=== PATIENT | male | born 1950 | race Two or more races ===

== ENCOUNTER → 2018-05-12 | Outpatient (CLI) | payer MEDICARE, OTHER ==
[~2018-05-12] MED LIST: DIOVAN160 MG PO; FLOMAX0.4 MG PO; KLONOPIN1 MG PO; METFORMIN HCL500 MG PO; SIMVASTATIN PO
--- NOTE | 2018-05-12 13:29 | Diagnostic Imaging Report ---
PROCEDURE:X-RAY ABDOMEN - KUB COMPARISON:06/30/2011. INDICATIONS:FOLLOW UP FOR RENAL STONE FINDINGS: No suspicious calcifications project over the renal shadows, expected ureteral courses, or urinary bladder. 2 rounded right pelvic calcifications are noted, likely representing phleboliths. Bowel gas pattern is nonobstructive. Regional skeletal structures are intact. CONCLUSION: No plain film evidence of urolithiasis. Previously described 3 mm left renal calculus is no longer visualized. Dictated by: Vipul Sky M.D. on 05/12/2018 at 13:34 Electronically approved by: Vipul Sky M.D. on 05/12/2018 at 13:34
== END ==
LOC: RAD 13:03
PROVIDERS: ATTEND Urology
DX: N20.0 Calculus of kidney (principal)
CPT/HCPCS: 74018

== ENCOUNTER 2018-06-14 08:04 | Inpatient (IN) | payer MEDICARE, OTHER ==
[2018-06-08 15:02] LABS: BASOPHILS # (AUTO) 0.1 (0.0-0.1); BASOPHILS % 0.8 % (0.0-1.0); EOSINOPHILS # (AUTO) 0.1 (0.0-0.4); EOSINOPHILS % 1.5 % (0.0-6.0); HEMATOCRIT 45.4 % (38.2-49.6); HEMOGLOBIN 16.1 g/dL (14.0-18.0); LYMPHOCYTES # (AUTO) 3.4 (1.0-3.2); LYMPHOCYTES % 39.3 % (18.0-39.1); MEAN CORPUSCULAR HEMOGLOBIN 30.7 pg (28-32); MEAN CORPUSCULAR HGB CONC 35.5 g/dL (31-35); MEAN CORPUSCULAR VOLUME 86.5 fL (81-99); MONOCYTES # (AUTO) 0.9 (0.2-0.8); MONOCYTES % 10.9 % (4.4-11.3); NEUTROPHILS % 46.7 % (38.7-80.0); PLATELET COUNT 150 x10e3/uL (140-360); RED BLOOD COUNT 5.25 x10e6/uL (4.3-5.7); RED CELL DISTRIBUTION WIDTH 12.9 % (11.7-14.4)
[2018-06-08 15:19] LABS: ANION GAP 14.9 mmol/L (8-16); BLOOD UREA NITROGEN 14 mg/dL (7-26); BUN/CREATININE RATIO 12 (6-25); CALCIUM 9.2 mg/dL (8.4-10.2); CARBON DIOXIDE 23 mmol/L (22-29); CHLORIDE 106 mmol/L (98-107); CREATININE, SERUM 1.16 mg/dL (0.72-1.25); EST GLOMERULAR FILTRATION RATE > 60 ML/MIN (60-); GLUCOSE 116 mg/dL (74-118); POTASSIUM 3.9 mmol/L (3.5-5.1); SODIUM 140 mmol/L (136-145)
--- NOTE | 2018-06-08 15:19 | Diagnostic Imaging Report ---
EXAMINATION: CHEST 2 VIEWS INDICATION: \S\PRE ADMIT \S\[id number] \S\1432 COMPARISON: None FINDINGS: PA and lateral views TUBES and LINES: None. LUNGS: Lungs are well inflated. Lungs are clear. There is no evidence of pneumonia or pulmonary edema. PLEURA: No pleural effusion or pneumothorax. HEART AND MEDIASTINUM: The cardiomediastinal silhouette is unremarkable. BONES AND SOFT TISSUES: No acute osseous lesion. Soft tissues are unremarkable. UPPER ABDOMEN: No free air under the diaphragm. IMPRESSION: No acute thoracic abnormality. Signed by: Dr. Suzanne Denton M.D. on 06/08/2018 3:16 PM
[~2018-06-14] VITALS: Ht 167.6 cm; Wt 73.5 kg
[~2018-06-14 08:04] MED LIST changes: +DOXEPIN; +IOPAMIDOL 300MG/ML 50ML INFUS..BTL IV ONE
[2018-06-14] MEDS ORDERED: CEFTRIAXONE SOD 1 GM VIAL ONE (08:27)
[2018-06-14] MEDS ORDERED: GENTAMICIN 80MG/NS 100 ML 200 ML IV ONE (08:41)
[2018-06-14] MEDS ORDERED: FENTANYL CITRATE/PF 100MCG/2 ML INJ ONE ×2 (14:38→18:07)
[2018-06-14] MEDS ORDERED: NALOXONE HCL INJ 0.4 MG/ML AMP IV PRN (16:00)
[2018-06-14] MEDS ORDERED: LEVOFLOXACIN 500MG/D5W 100ML 100 ML IV SCH (16:00)
[2018-06-14] MEDS ORDERED: ONDANSETRON HCL INJ 2 MG/ML VIAL IV PRN (16:00)
[2018-06-14] MEDS ORDERED: DIPHENHYDRAMINE HCL INJ 50 MG/ML VIAL IM PRN (16:00)
[2018-06-14] MEDS ORDERED: MORPHINE SULFATE 1 MG/ML 30ML PCA IV PRN (16:00)
[2018-06-14] MEDS ORDERED: MORPHINE SULFATE 2 MG/ML SYR ONE (17:10)
[2018-06-14] MEDS ORDERED: ONDANSETRON HCL INJ 2 MG/ML VIAL ONE (17:29)
[2018-06-14] MEDS ORDERED: DEXAMETHASONE SOD PHOS INJ 4 MG/ML VIAL ONE (17:29)
[2018-06-14] MEDS ORDERED: SEVOFLURANE INHAL SOLN 250 ML PEN BTL ONE (17:29)
[2018-06-14] MEDS ORDERED: LIDOCAINE HCL 2% LOCAL INJ 5 ML SDV VIAL INJ ONE (17:29)
[2018-06-14] MEDS ORDERED: KETOROLAC TROMETHAMINE 30 MG/ML VIAL ONE (17:29)
[2018-06-14] MEDS ORDERED: PROPOFOL IV EMULSION 10 MG/ML 20 ML VIAL ONE (17:29)
[2018-06-14 17:50] VITALS: BP 126/76
[2018-06-14] MEDS ORDERED: MIDAZOLAM HCL 2 MG/2 ML VIAL ONE (18:07)
[2018-06-14 18:38] VITALS: BP 126/76
[2018-06-14 18:46] VITALS: BP 126/76
[2018-06-14] MEDS ORDERED: FINASTERIDE5 MG PO (18:53)
[2018-06-14] MEDS ORDERED: DETROL LA4 MG PO (18:53)
[2018-06-14 20:00] VITALS: BP 110/69
[2018-06-14] MEDS: PHENAZOPYRIDINE HCL 100 MG TAB PO SCH (21:14)
[2018-06-14] MEDS: DOCUSATE SODIUM 100 MG CAP PO SCH (21:14)
[2018-06-14] MEDS: LEVOFLOXACIN 500MG/D5W 100ML 100 ML IV SCH (21:14)
[2018-06-14 21:15] VITALS: BP 110/69
[2018-06-14] MEDS: SOD CHL 0.45%/POT CHL 20MEQ 1,000 ML IV SCH (22:13)
[2018-06-15] VITALS (8 sets, daily range): BP systolic 85–155; BP diastolic 50–69
[2018-06-15] MEDS: SOD CHL 0.45%/POT CHL 20MEQ 1,000 ML IV SCH ×2 (00:20→19:00)
[2018-06-15 05:46] LABS: BASOPHILS % 0.2 % (0.0-1.0); HEMATOCRIT 33.9 % (38.2-49.6); HEMOGLOBIN 11.7 g/dL (14.0-18.0); LYMPHOCYTES # (AUTO) 2.3 (1.0-3.2); LYMPHOCYTES % 17.9 % (18.0-39.1); MEAN CORPUSCULAR HEMOGLOBIN 30.6 pg (28-32); MEAN CORPUSCULAR HGB CONC 34.5 g/dL (31-35); MEAN CORPUSCULAR VOLUME 88.7 fL (81-99); MONOCYTES # (AUTO) 1.3 (0.2-0.8); MONOCYTES % 10.1 % (4.4-11.3); NEUTROPHILS # (AUTO) 9.1 (2.1-6.9); NEUTROPHILS % 70.6 % (38.7-80.0); PLATELET COUNT 146 x10e3/uL (140-360); RED BLOOD COUNT 3.82 x10e6/uL (4.3-5.7); RED CELL DISTRIBUTION WIDTH 13.1 % (11.7-14.4)
[2018-06-15 06:05] LABS: ANION GAP 13.2 mmol/L (8-16); CALCIUM 7.5 mg/dL (8.4-10.2); CREATININE, SERUM 1.49 mg/dL (0.72-1.25); POTASSIUM 5.2 mmol/L (3.5-5.1)
[2018-06-15] MEDS ORDERED: DEXTROSE 50% SYRINGE 50 ML IV PRN (09:00)
[2018-06-15] MEDS: PHENAZOPYRIDINE HCL 100 MG TAB PO SCH ×3 (09:18→18:44)
[2018-06-15] MEDS: DOCUSATE SODIUM 100 MG CAP PO SCH ×2 (09:18→17:58)
--- NOTE | 2018-06-15 09:39 | History and Physical ---
POKER MACHINE ATTENDANT: Dr. Christopher Pope. CHIEF COMPLAINT: The patient is status post TURP procedure. HISTORY: A 67-year-old male with enlarged prostate and multiple kidney stone history. The patient is now admitted for postoperative care. The patient requires continuous irrigation due to post TURP. The patient has likely hematuria which is improved now. At baseline, the patient enlarged prostate and hypertension along with diabetes controlled with medication as well as dyslipidemia. The patient is otherwise stable at this time. PAST MEDICAL HISTORY: Diabetes type 2, enlarged prostate, dyslipidemia, hypertension. PAST SURGICAL HISTORY 1. Status post TURP procedure. 2. Left kidney stone removal. 3. History of lithotripsy. 4. Circumcision at age 12. 5. Left inguinal hernia repair. 6. Colonoscopy. SOCIAL HISTORY: The patient does not smoke or use alcohol. No recreational drugs. ALLERGIES: NO KNOWN ALLERGIES. HOME MEDICATIONS: He is on Klonopin, finasteride, metformin, Flomax, Detrol [place], Valsartan and simvastatin. PHYSICAL EXAMINATION VITAL SIGNS: Temperature is 98. Blood pressure 91/55. Pulse rate is 85. Respirations 18. GENERAL: The patient is not in acute distress. He is awake. HEENT: Normocephalic, atraumatic. Sclerae anicteric. NECK: Supple grossly. PULMONARY: Diminished breath sounds without any wheezes or rales. CARDIOVASCULAR: S1 and S2. Regular rate and rhythm. ABDOMEN: Soft, status post TURP procedure. EXTREMITIES: No cyanosis or edema. NEUROLOGIC: No focal deficit. LABORATORY: Sodium is 137, potassium 5.2, chloride 106, bicarb 23, BUN 25, creatinine 1.5, glucose 144. 147. WBC is 12.8, hemoglobin 11.7, hematocrit 33.9 and platelet is 146,000. IMPRESSION 1. Status post transurethral resection of prostate procedure. 2. Hyperkalemia. 3. Baseline hypertension, diabetes and dyslipidemia. 4. Enlarged prostate, status post procedure. 5. Postoperative hematuria, improving. PLAN: Continue with postop care. Discontinue IV fluids and TOLL TEST WORKER. Monitor the patient's lab work. Will check the potassium in the morning. Incentive spirometry. Resume home medications. Insulin sliding scale coverage. Job#: [id number]
[2018-06-15] MEDS: INSULIN LISPRO 100 UNIT/1 ML 3ML VIAL SQ SCH ×3 (11:30→21:00)
[2018-06-15] MEDS: HYDROCODONE/APAP 10MG-325MG TAB PO PRN ×2 (13:33→21:00)
[2018-06-15] MEDS: CALCIUM CARBONATE 500 MG CHEWABLE TABS PO SCH (17:58)
[2018-06-15] MEDS: LEVOFLOXACIN 500MG/D5W 100ML 100 ML IV SCH (21:00)
[2018-06-16] VITALS (8 sets, daily range): BP systolic 124–168; BP diastolic 67–90
[2018-06-16] MEDS: HYDROCODONE/APAP 10MG-325MG TAB PO PRN ×3 (02:10→19:23)
[2018-06-16 06:05] LABS: BASOPHILS # (AUTO) 0.1 (0.0-0.1); BASOPHILS % 0.7 % (0.0-1.0); EOSINOPHILS # (AUTO) 0.2 (0.0-0.4); HEMOGLOBIN 10.2 g/dL (14.0-18.0); LYMPHOCYTES # (AUTO) 2.6 (1.0-3.2); LYMPHOCYTES % 25.9 % (18.0-39.1); MEAN CORPUSCULAR HEMOGLOBIN 30.4 pg (28-32); MEAN CORPUSCULAR VOLUME 89.3 fL (81-99); MONOCYTES # (AUTO) 1.1 (0.2-0.8); MONOCYTES % 10.6 % (4.4-11.3); NEUTROPHILS # (AUTO) 5.9 (2.1-6.9); NEUTROPHILS % 59.8 % (38.7-80.0); PLATELET COUNT 125 x10e3/uL (140-360); RED BLOOD COUNT 3.36 x10e6/uL (4.3-5.7); RED CELL DISTRIBUTION WIDTH 13.2 % (11.7-14.4)
[2018-06-16 06:26] LABS: ANION GAP 11.6 mmol/L (8-16); CALCIUM 8.2 mg/dL (8.4-10.2); CREATININE, SERUM 1.25 mg/dL (0.72-1.25); POTASSIUM 4.6 mmol/L (3.5-5.1)
[2018-06-16] MEDS: INSULIN LISPRO 100 UNIT/1 ML 3ML VIAL SQ SCH ×4 (07:30→21:00)
[2018-06-16] MEDS: CALCIUM CARBONATE 500 MG CHEWABLE TABS PO SCH ×2 (08:31→17:04)
[2018-06-16] MEDS: DOCUSATE SODIUM 100 MG CAP PO SCH ×2 (08:31→17:04)
[2018-06-16] MEDS: PHENAZOPYRIDINE HCL 100 MG TAB PO SCH ×2 (08:31→12:56)
[2018-06-16] MEDS: LEVOFLOXACIN 500MG/D5W 100ML 100 ML IV SCH (21:43)
[2018-06-17] VITALS: BP 134/78
[2018-06-17 04:00] VITALS: BP 130/69
[2018-06-17 05:47] LABS: BASOPHILS # (AUTO) 0.1 (0.0-0.1); BASOPHILS % 0.7 % (0.0-1.0); EOSINOPHILS # (AUTO) 0.2 (0.0-0.4); HEMATOCRIT 32.3 % (38.2-49.6); LYMPHOCYTES # (AUTO) 3.4 (1.0-3.2); LYMPHOCYTES % 29.1 % (18.0-39.1); MEAN CORPUSCULAR HEMOGLOBIN 30.6 pg (28-32); MEAN CORPUSCULAR HGB CONC 34.1 g/dL (31-35); MEAN CORPUSCULAR VOLUME 89.7 fL (81-99); MONOCYTES # (AUTO) 1.2 (0.2-0.8); MONOCYTES % 10.1 % (4.4-11.3); NEUTROPHILS # (AUTO) 6.7 (2.1-6.9); NEUTROPHILS % 56.6 % (38.7-80.0); PLATELET COUNT 132 x10e3/uL (140-360); RED CELL DISTRIBUTION WIDTH 13.3 % (11.7-14.4)
[2018-06-17 06:03] LABS: ANION GAP 13.8 mmol/L (8-16); CALCIUM 8.8 mg/dL (8.4-10.2); CREATININE, SERUM 1.22 mg/dL (0.72-1.25); POTASSIUM 3.8 mmol/L (3.5-5.1)
[2018-06-17] MEDS: INSULIN LISPRO 100 UNIT/1 ML 3ML VIAL SQ SCH ×2 (07:30→11:30)
[2018-06-17] MEDS: CALCIUM CARBONATE 500 MG CHEWABLE TABS PO SCH (08:29)
[2018-06-17] MEDS: DOCUSATE SODIUM 100 MG CAP PO SCH (08:29)
[2018-06-17 08:33] VITALS: BP 157/87
[2018-06-17 10:39] VITALS: BP 157/87
[2018-06-17 12:20] VITALS: BP 140/82
[2018-06-17] MEDS ORDERED: LEVAQUIN500 MG PO (12:53)
[2018-06-17] MEDS ORDERED: DITROPAN XL5 MG PO (12:54)
[2018-06-17] MEDS ORDERED: TYLENOL WITH C1 EACH PO (12:54)
--- NOTE | 2018-06-17 23:54 | Discharge Summary ---
GLORY HOLE TENDER: Dr. Christopher Pope FINAL DIAGNOSES 1. Status post transurethral resection of prostate. 2. Resolved hematuria. SUMMARY: A 67-year-old male with a urinary tract obstruction, came in status post TURP. The patient has blood clotting due to the Liu catheter, he was getting continuous urinary bladder irrigation. The urine is much clear today. The patient is stable. He will discharge home with a Liu catheter with a leg bag. The patient is stable. LAB WORK: Otherwise unremarkable. BUN and creatinine is 13.1 and 1.22, stabilized. The hemoglobin 11, hematocrit 32.3. Patient is stable, discharged home today with Levaquin 5 mg daily for 7 days. Patient was stable. Continue with home medication. Tylenol No. 3 for pain and Ditropan for spasm. Job#: [id number] CQ
--- OUTSIDE RECORDS SUMMARY | 2018-07-13 06:07 | XMS REPORT ---
Author Author [facility] Address Unknown Phone Unavailable Care Team Providers Care Tree Chipper Name Role Phone KARLIE AGUAYO Unavailable Unavailable VISHAL ALEJANDRA Unavailable Unavailable Problems This patient has no known problems. Allergies, Adverse Reactions, Alerts This patient has no known allergies or adverse reactions. Medications This patient has no known medications. Results Test Description Test Time Test Comments Text Results Atomic Results Result Comments CHEST 2 VIEWS 2018-06-08 15:16:00 [facility] [address] [place] [address] Patient Name: BRITTANY WANG MR #: [id number] : 1950 Age/Sex: 67/M Req #: [id number] Adm Physician: Ordered by: SHAHAB DOMINGUEZ MD Report #: [id number] Location: OR Room/Bed: Procedure: [id number] DX/CHEST 2 VIEWS Exam Date: 06/08/18 Exam Time: 1432 REPORT STATUS: Signed EXAMINATION: CHEST 2 VIEWS INDICATION: COMPARISON: None FINDINGS: PA and lateral views TUBES and LINES: None. LUNGS: Lungs are well inflated. Lungs are clear. There is no evidence of pneumonia or pulmonary edema. PLEURA: No pleural effusion or pneumothorax. HEART AND MEDIASTINUM: The cardiomediastinal silhouette is unremarkable. BONES AND SOFT TISSUES: No acute osseous lesion. Soft tissues are unremarkable. UPPER ABDOMEN: No free air under the diaphragm. IMPRESSION: No acute thoracic abnormality. Signed by: Dr. George Alberto M.D. on 06/08/2018 3:16 PM Dictated By: GEORGE ALBERTO MD 15 Transcribed By: JOYCE on 06/08/181515 COPY TO: SHAHAB DOMINGUEZ MD ABDOMEN-1VIEW (KUB) 2018-05-12 13:34:00 [place] [address] Patient Name: BRITTANY WANG MR #: [id number] : 1950 Age/Sex: 67/M Req #: [id number] Adm Physician: Ordered by: KARLIE AGUAYO MD Report #: [id number] Location: [facility] Room/Bed: Procedure: [id number] DX/ABDOMEN-1VIEW (KUB) Exam Date: 05/12/18 Exam Time: 1318 REPORT STATUS: Signed PROCEDURE: X-RAY ABDOMEN - KUB COMPARISON: 06/30/2011. INDICATIONS: FOLLOW UP FOR RENAL STONE FINDINGS: No suspicious calcifications project over the renal shadows, expected ureteral courses, or urinary bladder. 2 rounded right pelvic calcifications are noted, likely representing phleboliths. Bowel gas pattern is nonobstructive. Regional skeletal structures are intact. CONCLUSION: No plain film evidence of urolithiasis. Previously described 3 mm left renal calculus is no longer visualized. Dictated by: Cecil Zhu M.D. on 05/12/2018 at 13:34 Electronically approved by: Cecil Zhu M.D. on 05/12/2018 at 13:34 Dictated By : CECIL ZHU MD 1334 Transcribed By: DAPHNEY on 05/12/18 1334 COPY TO: KARLIE AGUAYO MD CHEST 2 VIEWS [place] [address] Patient Name: BRITTANY WANG MR #: [id number] : 1950 Age/Sex: 67/M Req #: [id number] Adm Physician: Ordered by: VISHAL ALEJANDRA MD Report #: [id number] Location: OR Room/Bed: Procedure: [id number] DX/CHEST 2 VIEWS Exam Date: 09/12/17 Exam Time: 1105 REPORT STATUS: Signed PROCEDURE: CHEST 2 VIEWS TECHNIQUE: PA and lateral chest INDICATION: Preoperative evaluation for hernia repair COMPARISON: None. FINDINGS: Lungs are clear and symmetrically inflated. No pleural effusions. Normal heart size, mediastinal contour, and pulmonary vasculature. Intact skeleton. CONCLUSION: Normal chest. Dictated by: Sara Acharya M.D. on 09/12/2017 at 11: 43 Electronically approved by: Sara Acharya M.D. on 09/12/2017 at 11:43 Dictated By: SARA ACHARYA MD 1143 Transcribed By: DAPHNEY on 1143 COPY TO: VISHAL ALEJANDRA MD
--- NOTE | 2018-08-20 23:31 | Operative Report ---
DATE OF PROCEDURE: June 14, 2018 PREOPERATIVE DIAGNOSES 1. Obstructive BPH. 2. History of urolithiasis. POSTOPERATIVE DIAGNOSES 1. Obstructive BPH. 2. History of urolithiasis. 3. 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 OPERATIONS PERFORMED 1. Cystourethroscopy with calibration and dilation of urethral stricture (separate procedure performed for the diagnosis of stricture). 2. Cystourethroscopy with bilateral ureteral catheterization and retrograde ureteropyelography (separate procedure performed for history of urolithiasis). 3. Interpretation of retrograde ureteropyelography. 4. Cystourethroscopy with staged transurethral resection of the prostate utilizing the plasma button electrode. ANESTHESIA: General. COMPLICATIONS: None. CLINICAL SUMMARY: Inder Oliveira is a 67-year-old man with longstanding BPH. He has been on Flomax. He has previously been on finasteride. He has a hyperreflexic bladder and occasional urge incontinence. He has a history of stones. He is brought for the above procedures. He is aware of the risks of bleeding, infection, injury to adjacent structures, incontinence, impotence, retrograde ejaculation, need for additional procedures, and elected to proceed. OPERATIVE PROCEDURE IN DETAIL: Informed consent was verified. Inder Oliveira was properly identified, taken to the operating room, placed on the cystoscopy table in supine position. Anesthesia was uneventfully begun. The patient was then carefully and gently re-positioned in the dorsal lithotomy position with all pressure points well padded. His genitalia were prepared and draped in usual sterile fashion. The 22.5-Moroccan cystoscope sheath with visual obturator in place was atraumatically inserted in patient's urethra, but we could not pass through the fossa navicularis due to stricture. We calibrated this stricture to approximately 18-Moroccan in size and gently dilated it to 28-Moroccan in size. Following this, we were easily able to place the 22.5-Moroccan cystoscope sheath with a visual obturator into the patient's urethra. It was then guided down the otherwise unremarkable urethra past a normal sphincteric region, through the prostate bed which was significant for visually obstructing trilobar BPH. Panendoscopy of the urinary bladder revealed no suspicious mucosal lesions. No tumors and no stones. Trabeculations were noted. An 8-Moroccan catheter was used to cannulate each ureter and retrograde ureteropyelograms were performed. Interpretation of retrograde ureteropyelography: Contrast was instilled in retrograde fashion bilaterally. There were no tumors, no stones, and no diverticula. Unobstructed drainage was observed bilaterally fluoroscopically. The resectoscope sheath was then inserted. We utilized the plasma button electrode first. We eliminated the entire median lobe taking care to avoid injury to the ureteral orifices. We then worked on both lateral lobes from the bladder neck to but never past the verumontanum. This resulted in a wide open prostatic bed with excellent hemostasis. The resectoscope was withdrawn. Liu catheter was placed. It was placed on continuous irrigation. Patient was then uneventfully reversed from anesthesia and taken to the recovery room in stable condition. There were no complications to the procedure. He tolerated the procedure well. Explicit postop instructions were given. We will of course continue to follow the patient. Job#: [id number]
== END 2018-06-17 13:19 | disposition home or self-care (01) | DRG 713 ==
LOC: OR 08:04 → MED/SURG 18:03
PROVIDERS: ADMIT Internal Medicine; ATTEND Internal Medicine
PROC: BT141ZZ Fluoroscopy of Kidneys, Ureters and Bladder using Low Osmolar Contrast (ICD-10-PCS; 2018-06-14)
PROC: 0T7D8ZZ Dilation of Urethra, Via Natural or Artificial Opening Endoscopic (ICD-10-PCS; 2018-06-14)
PROC: 0VT08ZZ Resection of Prostate, Via Natural or Artificial Opening Endoscopic (ICD-10-PCS; principal; 2018-06-14 10:00)
PROC: 0T788ZZ Dilation of Bilateral Ureters, Via Natural or Artificial Opening Endoscopic (ICD-10-PCS; 2018-06-14 10:00)
DX: N40.1 Benign prostatic hyperplasia with lower urinary tract symptoms (principal); N17.9 Acute kidney failure, unspecified; N99.820 Postprocedural hemorrhage of a genitourinary system organ or structure following a genitourinary system procedure; N39.41 Urge incontinence; R35.0 Frequency of micturition; R35.1 Nocturia; R39.15 Urgency of urination; N35.8 Other urethral stricture; I10 Essential (primary) hypertension; E11.9 Type 2 diabetes mellitus without complications; R31.9 Hematuria, unspecified; I95.9 Hypotension, unspecified; E87.5 Hyperkalemia
CPT/HCPCS: 36415; 71046; 74420; 80048; 82948; 83735; 85025; 93005; 96361; J0696; J1100; J1580; J1885; J1956; J2001; J2250; J2270; J2405

== ENCOUNTER → 2019-08-06 | Outpatient (CLI) | payer OTHER, MEDICARE ==
[~2019-08-06] MED LIST changes: +DETROL LA4 MG PO; +DITROPAN XL5 MG PO; +FINASTERIDE5 MG PO; -IOPAMIDOL 300MG/ML 50ML INFUS..BTL IV ONE; +LEVAQUIN500 MG PO; +TYLENOL WITH C1 EACH PO
--- NOTE | 2019-08-06 16:55 | Diagnostic Imaging Report ---
Exam: KUB - 2 views Indication: Renal calculi Comparison: None Findings: No radiographically apparent renal calculi. Nonobstructive bowel gas pattern. No free air. The osseous structures appear unremarkable. The partially visualized lung bases appear clear. Subcentimeter phleboliths in the right pelvis. Impression: No radiographically apparent renal calculi. Signed by: Cami Spear MD on 08/06/2019 4:51 PM
== END ==
LOC: RAD 16:11
PROVIDERS: ATTEND Urology
DX: Z87.442 Personal history of urinary calculi (principal)
CPT/HCPCS: 74018

== ENCOUNTER → 2020-08-19 | Outpatient (CLI) | payer OTHER, MEDICARE ==
[~2020-08-19] MED LIST changes: +IOPAMIDOL 370 MG/ML 200 ML INFUS..BTL INJ ONE; +SODIUM CHLORIDE 0.9% 250ML 250 ML ONE
[2020-08-19 12:39] LABS: BLOOD UREA NITROGEN 15 mg/dL (7-26); BUN/CREATININE RATIO 14 (6-25); CREATININE, SERUM 1.06 mg/dL (0.72-1.25); EST GLOMERULAR FILTRATION RATE > 60 ML/MIN (60-)
--- NOTE | 2020-08-19 13:47 | Diagnostic Imaging Report ---
CT of the abdomen and pelvis with contrast TECHNIQUE: CT of the abdomen and pelvis WITHOUT and WITH intravenous contrast and WITHOUT oral contrast was performed in prone positioning per hematuria protocol. Dose modulation, iterative reconstruction, and/or weight-based adjustment of the mA/kV was utilized to reduce the radiation dose to as low as reasonably achievable. 3-D reconstructions were obtained and reviewed on a dedicated workstation. IV CONTRAST: 100 mL of Isovue-370 ORAL CONTRAST: None RADIATION DOSE: Total DLP: 667 mGy*cm COMPLICATIONS: None INDICATION: ^[id number] ^1250 ^MICROSCOPIC HEMATURIA. COMPARISON: None. FINDINGS: LOWER THORAX: Mild dependent subsegmental atelectasis is noted. HEPATOBILIARY: No focal hepatic lesions. Gallbladder is unremarkable. No biliary ductal dilatation. SPLEEN: No splenomegaly. PANCREAS: No focal masses or ductal dilatation. ADRENALS: No adrenal nodules. KIDNEYS/URETERS: There is a punctate 2 mm renal calculus of the left inferior pole. No other renal calculi are visualized. No ureteral or bladder stone is identified. Postcontrast images damages symmetric cortical enhancement without hydronephrosis or suspicious mass. Negative for perinephric fluid collection. Symmetric excretion of contrast is identified without intraluminal filling defect. The ureters are well opacified throughout the entire course. Bladder is well opacified. PELVIC ORGANS/BLADDER: Urinary bladder is unremarkable without wall thickening or surrounding inflammatory changes. The prostate is unremarkable measuring 3.7 x 2.9 x 2.7 cm for a volume of 15 cc. PERITONEUM/RETROPERITONEUM: No free air or fluid. LYMPH NODES: No lymphadenopathy. VESSELS: Negative abdominal aortic aneurysm. Mild scattered catheter cirrhotic changes are noted. GI TRACT: Visualized bowel loops are not dilated. Stomach is decompressed limiting evaluation. Normal appendix is noted. Negative for obstruction. No surrounding inflammatory changes are identified. BONES AND SOFT TISSUES: No acute osseous abnormality. Mild to moderate multilevel degenerative changes of the spine are noted. No suspicious destructive lesion is identified. Soft tissues are unremarkable. IMPRESSION: 1. There is a single 2 mm left inferior pole renal calculus. 2. Negative for hydronephrosis, suspicious renal mass or upper urinary tract intraluminal urothelial mass. Bladder is unremarkable. Prostate is unremarkable. Signed by: Jayant Damon MD on 08/19/2020 1:44 PM
== END ==
LOC: CT 11:51
PROVIDERS: ATTEND Urology
DX: R31.21 Asymptomatic microscopic hematuria (principal)
CPT/HCPCS: 36415; 74178; 82565; 84520; J7050; Q9967